=== PATIENT | male | born 1970 | race Caucasian/White ===

== ENCOUNTER 2024-02-24 05:41 | Emergency (ER) | payer SELFPAY ==
--- NOTE | ~2024-02-24 | XR_ITS ---
Clinical Indication: Chest pain PA and lateral views of the chest: Comparison: None Findings: The lungs are clear, without evidence of focal consolidation or pleural effusion. Cardiome diastinal silhouette is within normal limits. Bones and soft tissues are unremarkable. Impression: Normal chest. Reviewed, dictated and finalized at location . Impression: Normal chest.
[2024-02-24 05:44] VITALS: BP 158/96; PULSE 87; RESP 17; TEMP 36.6; O2SAT 98
--- NOTE | 2024-02-24 05:49 | ECG_ITS ---
SEE SCANNED COPY FOR CONFIRMED REPORT MTDD
[2024-02-24] MEDS: ASPIRIN 81 MG CHEWABLE TABLET 324 MG PO (05:57)
[2024-02-24 06:02] LABS: Basophils Absolute Auto 0.1 K/mm3 (0.0-0.1); Basophils Percent Auto 0.7 % (0.2-1.2); Eosinophils Absolute Auto 0.2 K/mm3 (0-0.3); Eosinophils Percent Auto 2.3 % (0-4.4); Hematocrit 49.1 % (42.0-52.0); Hemoglobin 16.8 g/dL (14.0-18.0); Immature Granulocyte Absolute 0.03 K/mm3 (0.00-0.031); Immature Granulocyte Percent A 0.3 % (0-0.5); Lymphocytes Absolute Auto 4.24 K/mm3 (0.9-3.2); Lymphocytes Percent Auto 44.2 % (18.3-44.2); Mean Corpuscular HGB Conc 34.2 g/dl (32-36); Mean Corpuscular Hemoglobin 31.1 pg (26-34); Mean Corpuscular Volume 90.8 fl (80-100); Mean Platelet Volume 9.6 fl (7.4-10.4); Monocytes Absolute Auto 0.8 K/mm3 (0.1-0.6); Monocytes Percent Auto 8.8 % (2.6-8.5); Neutrophils Absolute Auto 4.2 K/mm3 (1.3-6.7); Neutrophils Percent Auto 43.7 % (45.5-73.1); Platelet Count Result 226 k/mm3 (150-375); Red Blood Count 5.41 M/mm3 (4.6-6.20); Red Cell Distribution Width 12.2 % (11.5-14.5); White Blood Count 9.6 K/mm3 (4.5-10.0)
[2024-02-24 06:13] LABS: Alanine Aminotransferase 37 U/L (6-50); Albumin Level 4.6 g/dL (3.5-5.1); Alkaline Phosphatase 62 U/L (38-126); Anion Gap 8 mmol/L (4-12); Aspartate Amino Transferase 31 U/L (17-59); Bilirubin,Total 0.7 mg/dL (0.2-1.3); Blood Urea Nitrogen 18 mg/dL (9-20); Calcium 9.2 mg/dL (8.4-10.2); Carbon Dioxide 23 mmol/L (22-30); Chloride 107 mmol/L (98-107); Estimated CRCL calculation 97 ml/min; Estimated Glomerular Filt Rate > 60; Glucose 113 mg/dL (65-110); Lipase 137 U/L (23-300); Sodium 138 mmol/L (137-145)
[2024-02-24 06:25] LABS: Troponin I < 0.012 ng/mL (0.000-0.034)
[2024-02-24 06:29] LABS: INR 0.9; Prothrombin Time 12.8 Seconds (11.1-14.7)
[2024-02-24 06:30] LABS: Partial Thromboplastin Time 27.1 Seconds (22.3-36.8)
--- NOTE | 2024-02-24 06:33 | ED.GENADULT ---
HPI - General Adult General Chief complaint: Chest Pain <Live Lombardo MD - Last Filed: 02/24/24 19:00> Stated complaint: chest discomfort <Live Lombardo MD - Last Filed: 02/24/24 19:00> Time Seen by Provider: 02/24/24 06:22 <Live Lombardo MD - Last Filed: 02/24/24 19:00> History of Present Illness HPI narrative: patient 54-year-old gentleman who presents emergency department with chief complaint of chest discomfort. 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 The patient states symptoms have resolved and reports that he has not had an episode like this before in the past <Live Lombardo MD - Last Filed: 02/24/24 19:00> Related Data Allergies/adverse reactions: Allergies Allergy/AdvReac Type Severity Reaction Status Date / Time No Known Allergies Allergy Verified 02/24/24 05:47 <Live Lombardo MD - Last Filed: 02/24/24 19:00> Review of Systems Review of Systems: A 10 system review of systems was completed on the patient and is negative except for what is stated in the HPI. Nursing and ancillary documentation was reviewed. <Live Lombardo MD - Last Filed: 02/24/24 19:00> Exam Narrative: GENERAL: Well-appearing, well-nourished, and in no acute distress. HEAD: Normocephalic, atraumatic. EYES: PERRLA and EOMI. ENT: Nares clear, no rhinorrhea or epistaxis. Mucous membranes moist. NECK: Supple. CHEST: Clear to auscultation. No respiratory distress. HEART: Regular rate and rhythm. No murmur heard. Normal peripheral pulses. ABDOMEN: Soft, nontender, nondistended, normal active bowel sounds. EXTREMITIES: Normal range of motion. No edema. SKIN: Warm, dry, no rash. NEURO: No focal deficits. Alert and oriented x3. PSYCH: Normal mood and affect. <Live Lombardo MD - Last Filed: 02/24/24 19:00> Course Course Emergency Course: Troponins negative x2. Appropriate for discharge home. <Edi Del Toro MD - Last Filed: 02/24/24 09:35> Vital Signs Vital signs: Vital Signs Temperature 36.6 C 02/24/24 05:44 Pulse Rate 87 02/24/24 05:44 Respiratory Rate 17 02/24/24 05:44 Blood Pressure 158/96 H 02/24/24 05:44 Pulse Oximetry 98 02/24/24 05:44 Oxygen Delivery Room Air 02/24/24 05:44 Temperature 36.8 C 02/24/24 09:00 Pulse Rate 79 02/24/24 09:00 Respiratory Rate 16 02/24/24 09:00 Blood Pressure 154/96 H 02/24/24 08:00 Pulse Oximetry 97 02/24/24 09:00 Oxygen Delivery Room Air 02/24/24 05:44 <Live Lombardo MD - Last Filed: 02/24/24 19:00> Vital Signs Temperature 36.6 C 02/24/24 05:44 Pulse Rate 87 02/24/24 05:44 Respiratory Rate 17 02/24/24 05:44 Blood Pressure 158/96 H 02/24/24 05:44 Pulse Oximetry 98 02/24/24 05:44 Oxygen Delivery Room Air 02/24/24 05:44 Temperature 36.8 C 02/24/24 09:00 Pulse Rate 79 02/24/24 09:00 Respiratory Rate 16 02/24/24 09:00 Blood Pressure 154/96 H 02/24/24 08:00 Pulse Oximetry 97 02/24/24 09:00 Oxygen Delivery Room Air 02/24/24 05:44 <Edi Del Toro MD - Last Filed: 02/24/24 09:35> Medical Decision Making MDM Narrative Medical decision making narrative: differential diagnosis includes ACS, pancreatitis, pulmonary embolism EKG showed no acute ischemic changes laboratory studies were obtained on the patient showed 0 hour troponin that was negative lipase was normal renal function was within normal limits CBC was within normal limits. Chest x-ray showed no evidence of pneumothorax and no widened mediastinum a D-dimer has been ordered for a 3 hour delta troponin is also pending at this time of exam and care
[2024-02-24 06:46] LABS: D Dimer < 0.27 ug/mL (<0.48)
[2024-02-24 07:00] VITALS: BP 150/74; PULSE 74; RESP 16; TEMP 36.7; O2SAT 100
[2024-02-24 08:00] VITALS: BP 154/96; PULSE 76; RESP 16; TEMP 36.7; O2SAT 98
--- NOTE | 2024-02-24 08:44 | ECG_ITS ---
SEE SCANNED COPY FOR CONFIRMED REPORT MTDD
[2024-02-24 09:00] VITALS: PULSE 79; RESP 16; TEMP 36.8; O2SAT 97
[2024-02-24 09:09] LABS: Troponin I < 0.012 ng/mL (0.000-0.034)
== END 2024-02-24 09:46 | disposition home or self-care (01) ==
PROVIDERS: Emergency Provider Emergency Medicine
DX: R07.89 Other chest pain (principal)
CPT/HCPCS: 36415; 71046; 80053; 83690; 84484; 85025; 85380; 85610; 85730; 93005; 99284; A9270